=== PATIENT | female | born 1970 | race African-American/Black ===

== ENCOUNTER 2020-09-03 18:28 | Inpatient (IN) ==
[2020-09-03] MEDS ORDERED: SODIUM CHLORIDE 0.9% 1,000 ML IV STA ×2 (19:48→22:06)
[2020-09-03 20:14] LABS: Basophils % 0.3 % (0.0-0.8); Eosinophils # 0.1 10*3/uL (0.0-0.87); Eosinophils % 1.1 % (0.00-10.9); Hematocrit 36.5 VOL% (35.7-47.0); Hemoglobin 11.3 GM/DL (12.0-16.0); Immature Granulocytes % 0.9 %; Immature Granulocytes Absolute 0.11 #; Lymphocytes # 3.5 10*3/uL (1.4-4.0); Lymphocytes % 29.2 % (21.3-54.2); Mean Corpuscular Volume 92.2 FL (87-102); Neutrophils % 63.5 % (38.7-73.9); Platelet Count 198 T/CUMM (130-400); Red Blood Count 3.96 MC/CUMM (3.8-5.5); Red Cell Distribution Width 12.4 % (9.3-17.3)
[2020-09-03 20:41] LABS: Alanine Aminotransferase 20 U/L (13-56); Albumin 3.1 G/DL (3.4-5.0); Alkaline Phosphatase 205 U/L (45-117); Aspartate Amino Transferase 19 U/L (0-37); Bilirubin,Total < 0.39 MG/DL (0.2-1.0); Blood Urea Nitrogen 75 MG/DL (7-18); Calcium 9.5 MG/DL (8.5-10.1); Carbon Dioxide 20 MMOL/L (21-32); Estimated Glom Filtration Rate 30 ML/MIN; Glucose 351 MG/DL (74-106); Osmolality,Calculated 301.4 MOS/KG (273-304); Sodium 133 MMOL/L (136-145); Total Protein 8.8 G/DL (6.4-8.3)
[2020-09-03 22:16] LABS: Bacteria,Urine Few /HPF (Few); Bilirubin,Urine Negative (Negative); Blood, Urine Negative (Negative); Glucose,Urine (UA) >=500 mg/dL (Negative); Ketones,Urine Negative (Negative); Mucus,Urine Occasional /LPF (Occasional); Nitrite,Urine Negative (Negative); Protein,Urine 100 MG/DL; RBC,Urine 1 /HPF (0-4); Squamous Epithelial Cell,Urine Occasional /HPF (0-10); Urine Appearance CLEAR (Clear); Urine Color Straw (Yellow); Urine Specific Gravity 1.008 (1.001-1.035); Urine Urobilinogen < 2.0 EU/DL (0.2-1.0); WBC,Urine 2 /HPF (0-6)
[2020-09-04] MEDS ORDERED: ACETAMINOPHEN 325 MG TABLET PO PRN (00:44)
[2020-09-04] MEDS ORDERED: hydrALAZINE 20 MG/1 ML VIAL IV PRN (00:44)
[2020-09-04] MEDS ORDERED: ONDANSETRON 4 MG/2 ML VIAL IV PRN (00:44)
[2020-09-04] MEDS ORDERED: LACTULOSE 20 GM/30 ML UDCUP PO PRN (00:44)
[2020-09-04] MEDS ORDERED: DEXTROSE 50% 25 GM/50 ML VIAL IV PRN (00:44)
[2020-09-04] MEDS ORDERED: GLUCAGON 1 MG VIAL IM PRN (00:44)
[2020-09-04] MEDS: ENOXAPARIN 30 MG/0.3 ML SYRINGE SUBCUT SCH (02:21)
[2020-09-04] MEDS: INSULIN GLARGINE 100 UNIT/ML SUBCUT SCH ×2 (02:21→21:20)
[2020-09-04] MEDS: SODIUM CHLORIDE 0.9% 1,000 ML IV SCH ×3 (02:22→23:51)
[2020-09-04 05:45] LABS: Basophils % 0.3 % (0.0-0.8); Eosinophils # 0.1 10*3/uL (0.0-0.87); Eosinophils % 1.2 % (0.00-10.9); Hematocrit 28.9 VOL% (35.7-47.0); Lymphocytes # 3.6 10*3/uL (1.4-4.0); Lymphocytes % 34.5 % (21.3-54.2); Mean Corpuscular HGB Conc 31.1 GM/DL (32-36); Mean Corpuscular Volume 92.3 FL (87-102); Mean Platelet Volume 11.4 FL (9.6-12.0); Monocytes % 6.8 % (1.7-12.7); Neutrophils % 56.2 % (38.7-73.9); Platelet Count 218 T/CUMM (130-400); Red Blood Count 3.13 MC/CUMM (3.8-5.5); Red Cell Distribution Width 12.6 % (9.3-17.3); White Blood Count 10.3 T/CUMM (4-12)
[2020-09-04 06:08] LABS: Calcium 8.4 MG/DL (8.5-10.1); Potassium 4.6 MMOL/L (3.5-5.1)
[2020-09-04] MEDS: INSULIN LISPRO 100 UNIT/ML SUBCUT SCH ×4 (09:48→21:20)
[2020-09-04] MEDS: SIMVASTATIN 20 MG TABLET PO SCH (09:55)
[2020-09-04] MEDS: GABAPENTIN 300 MG CAPSULE PO SCH ×3 (09:55→21:20)
[2020-09-04] MEDS: amLODIPine 10 MG TABLET PO SCH (09:55)
[2020-09-04] MEDS: oxyCODONE/ACETAMINOPHEN 5-325 MG TABLET PO PRN (23:50)
[2020-09-05 06:50] LABS: Basophils % 0.3 % (0.0-0.8); Eosinophils # 0.2 10*3/uL (0.0-0.87); Eosinophils % 1.7 % (0.00-10.9); Hematocrit 28.8 VOL% (35.7-47.0); Hemoglobin 8.8 GM/DL (12.0-16.0); Immature Granulocytes % 0.8 %; Immature Granulocytes Absolute 0.08 #; Lymphocytes # 4.4 10*3/uL (1.4-4.0); Mean Corpuscular HGB Conc 30.6 GM/DL (32-36); Mean Corpuscular Volume 93.8 FL (87-102); Mean Platelet Volume 11.3 FL (9.6-12.0); Monocytes % 6.5 % (1.7-12.7); Neutrophils % 48.7 % (38.7-73.9); Platelet Count 241 T/CUMM (130-400); Red Blood Count 3.07 MC/CUMM (3.8-5.5); Red Cell Distribution Width 12.6 % (9.3-17.3); White Blood Count 10.6 T/CUMM (4-12)
[2020-09-05 07:31] LABS: Calcium 8.2 MG/DL (8.5-10.1); Potassium 4.6 MMOL/L (3.5-5.1)
[2020-09-05] MEDS: GABAPENTIN 300 MG CAPSULE PO SCH ×3 (08:11→21:15)
[2020-09-05] MEDS: amLODIPine 10 MG TABLET PO SCH (08:11)
[2020-09-05] MEDS: INSULIN LISPRO 100 UNIT/ML SUBCUT SCH ×4 (08:11→21:18)
[2020-09-05] MEDS: ENOXAPARIN 30 MG/0.3 ML SYRINGE SUBCUT SCH (08:11)
[2020-09-05] MEDS: SIMVASTATIN 20 MG TABLET PO SCH (08:11)
[2020-09-05] MEDS: SODIUM CHLORIDE 0.9% 1,000 ML IV SCH ×2 (08:20→12:51)
[2020-09-05] MEDS ORDERED: INSULIN GLARGINE 100 UNIT/ML SUBCUT SCH (17:55)
[2020-09-05] MEDS: oxyCODONE/ACETAMINOPHEN 5-325 MG TABLET PO PRN (21:16)
[2020-09-05] MEDS: hydrALAZINE 10 MG TABLET PO SCH (21:16)
[2020-09-06] MEDS: SODIUM CHLORIDE 0.9% 1,000 ML IV SCH (02:29)
[2020-09-06 03:35] LABS: Calcium 8.4 MG/DL (8.5-10.1); Osmolality,Calculated 291.8 MOS/KG (273-304); Potassium 4.7 MMOL/L (3.5-5.1)
[2020-09-06 07:58] VITALS: BP 135/55
[2020-09-06] MEDS: GABAPENTIN 300 MG CAPSULE PO SCH (09:11)
[2020-09-06] MEDS: hydrALAZINE 10 MG TABLET PO SCH (09:11)
[2020-09-06] MEDS: amLODIPine 10 MG TABLET PO SCH (09:12)
[2020-09-06] MEDS: ENOXAPARIN 30 MG/0.3 ML SYRINGE SUBCUT SCH (09:12)
[2020-09-06] MEDS: INSULIN LISPRO 100 UNIT/ML SUBCUT SCH (09:12)
[2020-09-06] MEDS ORDERED: SIMVASTATIN 20 MG TABLET PO SCH (21:00)
== END 2020-09-06 12:31 | disposition home or self-care (01) | DRG 422 ==
LOC: N.ED 18:28 → N.EDINP 23:32 → SUATTDRO 23:32 → N.EDINP 09-04 00:56 → N.4E 09-04 02:38
PROVIDERS: ADMIT Internal Medicine; ATTEND Internal Medicine

== ENCOUNTER 2022-06-28 10:09 | Inpatient (IN) ==
[2022-06-28] MEDS ORDERED: ACETAMINOPHEN 325 MG TABLET PO PRN (14:43)
[2022-06-28] MEDS ORDERED: ONDANSETRON 4 MG/2 ML VIAL IV PRN (14:43)
[2022-06-28 15:14] LABS: Basophils % 0.3 % (0.0-0.8); Eosinophils # 0.2 10*3/uL (0.0-0.87); Eosinophils % 1.8 % (0.00-10.9); Hematocrit 25.9 VOL% (35.7-47.0); Hemoglobin 7.6 GM/DL (12.0-16.0); Immature Granulocytes % 1.6 %; Immature Granulocytes Absolute 0.19 #; Lymphocytes # 2.4 10*3/uL (1.4-4.0); Lymphocytes % 21.1 % (21.3-54.2); Mean Corpuscular HGB Conc 29.3 GM/DL (32-36); Mean Corpuscular Volume 94.2 FL (87-102); Mean Platelet Volume 9.6 FL (9.6-12.0); Monocytes # 0.9 10*3/uL (0.11-0.8); Monocytes % 7.4 % (1.7-12.7); NRBC # 0.02 10*3/uL; Neutrophils % 67.8 % (38.7-73.9); Platelet Count 324 T/CUMM (130-400); Red Blood Count 2.75 MC/CUMM (3.8-5.5); Red Cell Distribution Width 14.2 % (9.3-17.3); White Blood Count 11.6 T/CUMM (4-12)
[2022-06-28 15:32] LABS: Alanine Aminotransferase 44 U/L (13-56); Albumin 2.2 G/DL (3.4-5.0); Alkaline Phosphatase 174 U/L (45-117); Aspartate Amino Transferase 24 U/L (0-37); Bilirubin,Total < 0.39 MG/DL (0.20-1.00); Blood Urea Nitrogen 103 MG/DL (7-18); Calcium 8.8 MG/DL (8.5-10.1); Carbon Dioxide 22 MMOL/L (21-32); Chloride 106 MMOL/L (98-107); Glucose 174 MG/DL (74-106); Potassium 5.7 MMOL/L (3.5-5.1); Sodium 136 MMOL/L (136-145); Total Protein 7.5 G/DL (6.4-8.2)
[2022-06-28] MEDS ORDERED: GLUCAGON 1 MG VIAL IM PRN (15:42)
[2022-06-28] MEDS ORDERED: DEXTROSE 10% 250 ML BAG IV PRN (15:42)
[2022-06-28 16:14] LABS: % Iron Saturation 13.5 % (18-50); Ferritin 355.4 ng/mL (8-252)
[2022-06-28] MEDS: INSULIN LISPRO 100 UNIT/ML SUBCUT SCH ×2 (16:35→21:30)
[2022-06-28] MEDS: hydrALAZINE 20 MG/1 ML VIAL IV PRN (21:29)
[2022-06-28] MEDS: FLUTICASONE 50 MCG NASAL SPRAY 16 GM BOTTLE BOTH NARES SCH (21:29)
[2022-06-28] MEDS: HEPARIN 5,000 UNIT/1 ML VIAL SUBCUT SCH (21:30)
[2022-06-28] MEDS: SODIUM ZIRCONIUM CYCLOSILICATE 10 GM PACK PO SCH (21:30)
[2022-06-29 05:11] LABS: Basophils % 0.3 % (0.0-0.8); Eosinophils # 0.3 10*3/uL (0.0-0.87); Eosinophils % 2.3 % (0.00-10.9); Hemoglobin 6.9 GM/DL (12.0-16.0); Immature Granulocytes % 1.6 %; Immature Granulocytes Absolute 0.17 #; Lymphocytes # 2.2 10*3/uL (1.4-4.0); Lymphocytes % 20.5 % (21.3-54.2); Mean Corpuscular HGB Conc 28.8 GM/DL (32-36); Mean Corpuscular Volume 96.8 FL (87-102); Mean Platelet Volume 9.9 FL (9.6-12.0); Monocytes # 0.8 10*3/uL (0.11-0.8); Monocytes % 7.1 % (1.7-12.7); NRBC # 0.02 10*3/uL; Neutrophils % 68.2 % (38.7-73.9); Platelet Count 343 T/CUMM (130-400); Red Blood Count 2.48 MC/CUMM (3.8-5.5); Red Cell Distribution Width 14.2 % (9.3-17.3); White Blood Count 10.9 T/CUMM (4-12)
[2022-06-29 05:22] LABS: Calcium 8.8 MG/DL (8.5-10.1); Osmolality,Calculated 303.2 MOS/KG (273-304); Potassium 5.9 MMOL/L (3.5-5.1)
[2022-06-29 05:39] LABS: Platelet Estimate Adequate
[2022-06-29 06:03] LABS: Hepatitis B Core IgM Quant 0.06 Index; Hepatitis B Surface Ag Quant < 0.10 Index; Hepatitis B Surface Ag Result Non-Reactive (NonReactive); Hepatitis C Virus Ab Quant < 0.02 Index; Hepatitis C Virus Ab Result Non-Reactive (NonReactive)
[2022-06-29] MEDS: INSULIN LISPRO 100 UNIT/ML SUBCUT SCH ×4 (08:45→21:49)
[2022-06-29] MEDS ORDERED: INSULIN REGULAR 10 UNIT, CALCIUM GLUCONATE 1,000 MG in DEXTROSE 10% 250 ML IV ONE (10:03)
[2022-06-29] MEDS: FERROUS SULFATE 325 MG TABLET PO SCH ×2 (10:31→21:46)
[2022-06-29] MEDS: PANTOPRAZOLE 40 MG TABLET PO SCH (10:31)
[2022-06-29] MEDS: HEPARIN 5,000 UNIT/1 ML VIAL SUBCUT SCH (10:31)
[2022-06-29] MEDS: hydrALAZINE 10 MG TABLET PO SCH (10:31)
[2022-06-29] MEDS: SODIUM ZIRCONIUM CYCLOSILICATE 10 GM PACK PO SCH ×3 (10:31→21:47)
[2022-06-29] MEDS: GABAPENTIN 300 MG CAPSULE PO SCH ×3 (10:31→21:46)
[2022-06-29] MEDS: FLUTICASONE 50 MCG NASAL SPRAY 16 GM BOTTLE BOTH NARES SCH ×2 (10:32→21:47)
[2022-06-29] MEDS ORDERED: SODIUM CHLORIDE 0.9% 1,000 ML IV PRN (10:46)
[2022-06-29] MEDS ORDERED: DEXTROSE 50% 25 GM/50 ML VIAL IV PRN (11:13)
[2022-06-29] MEDS ORDERED: FUROSEMIDE 100 MG/10 ML VIAL IV SCH (16:00)
[2022-06-29] MEDS: amLODIPine 10 MG TABLET PO SCH (21:46)
[2022-06-29] MEDS: INSULIN GLARGINE 100 UNIT/ML SUBCUT SCH (21:49)
[2022-06-30 04:52] LABS: Basophils % 0.3 % (0.0-0.8); Eosinophils # 0.2 10*3/uL (0.0-0.87); Eosinophils % 1.9 % (0.00-10.9); Hematocrit 23.4 VOL% (35.7-47.0); Hemoglobin 6.8 GM/DL (12.0-16.0); Immature Granulocytes Absolute 0.23 #; Lymphocytes # 2.4 10*3/uL (1.4-4.0); Lymphocytes % 20.8 % (21.3-54.2); Mean Corpuscular HGB Conc 29.1 GM/DL (32-36); Mean Corpuscular Volume 95.5 FL (87-102); Mean Platelet Volume 9.7 FL (9.6-12.0); Monocytes # 0.8 10*3/uL (0.11-0.8); Monocytes % 7.3 % (1.7-12.7); Neutrophils % 67.7 % (38.7-73.9); Platelet Count 327 T/CUMM (130-400); Red Blood Count 2.45 MC/CUMM (3.8-5.5); Red Cell Distribution Width 13.8 % (9.3-17.3); White Blood Count 11.4 T/CUMM (4-12)
[2022-06-30 05:02] LABS: Calcium 8.7 MG/DL (8.5-10.1); Osmolality,Calculated 310.7 MOS/KG (273-304); Potassium 5.6 MMOL/L (3.5-5.1)
[2022-06-30] MEDS ORDERED: HEPARIN 5,000 UNIT/1 ML VIAL ONE (06:14)
[2022-06-30] MEDS ORDERED: BUPIVACAINE MPF 0.25% 10 ML VIAL ONE (06:14)
[2022-06-30] MEDS ORDERED: LIDOCAINE 1%/EPI INJ 20 ML VIAL ONE (06:14)
[2022-06-30] MEDS ORDERED: MIDAZOLAM 2 MG/2 ML VIAL ONE (06:45)
[2022-06-30] MEDS ORDERED: fentaNYL 100 MCG/2 ML VIAL ONE (06:45)
[2022-06-30] MEDS ORDERED: ONDANSETRON 4 MG/2 ML VIAL ONE (08:05)
[2022-06-30] MEDS ORDERED: TISSUE ADHESIVE 1 EACH APPLICATOR TOP ONE (08:13)
[2022-06-30] MEDS ORDERED: SODIUM CHLORIDE 0.9% 1,000 ML IV PRN (08:37)
[2022-06-30] MEDS: INSULIN LISPRO 100 UNIT/ML SUBCUT SCH ×4 (08:58→21:17)
[2022-06-30] MEDS: SODIUM ZIRCONIUM CYCLOSILICATE 10 GM PACK PO SCH ×2 (09:00→17:12)
[2022-06-30] MEDS: FLUTICASONE 50 MCG NASAL SPRAY 16 GM BOTTLE BOTH NARES SCH ×2 (09:00→21:17)
[2022-06-30] MEDS: FERROUS SULFATE 325 MG TABLET PO SCH ×2 (09:00→21:17)
[2022-06-30] MEDS: hydrALAZINE 10 MG TABLET PO SCH (09:00)
[2022-06-30] MEDS: GABAPENTIN 300 MG CAPSULE PO SCH ×3 (09:01→21:17)
[2022-06-30] MEDS: PANTOPRAZOLE 40 MG TABLET PO SCH (09:01)
[2022-06-30] MEDS ORDERED: HEPARIN 10,000 UNIT/10 ML VIAL IV PRN (10:49)
[2022-06-30] MEDS: INSULIN GLARGINE 100 UNIT/ML SUBCUT SCH (21:17)
[2022-06-30] MEDS: amLODIPine 10 MG TABLET PO SCH (21:17)
[2022-07-01 05:05] LABS: Basophils % 0.3 % (0.0-0.8); Eosinophils # 0.2 10*3/uL (0.0-0.87); Eosinophils % 1.8 % (0.00-10.9); Hematocrit 27.2 VOL% (35.7-47.0); Hemoglobin 8.1 GM/DL (12.0-16.0); Immature Granulocytes Absolute 0.22 #; Lymphocytes # 1.7 10*3/uL (1.4-4.0); Lymphocytes % 15.5 % (21.3-54.2); Mean Corpuscular HGB Conc 29.8 GM/DL (32-36); Mean Corpuscular Volume 94.4 FL (87-102); Mean Platelet Volume 9.6 FL (9.6-12.0); Monocytes # 0.8 10*3/uL (0.11-0.8); Monocytes % 6.7 % (1.7-12.7); NRBC # 0.02 10*3/uL; Neutrophils % 73.7 % (38.7-73.9); Platelet Count 298 T/CUMM (130-400); Red Blood Count 2.88 MC/CUMM (3.8-5.5); White Blood Count 11.1 T/CUMM (4-12)
[2022-07-01 05:20] LABS: Calcium 9.1 MG/DL (8.5-10.1); Osmolality,Calculated 304.4 MOS/KG (273-304); Potassium 5.3 MMOL/L (3.5-5.1)
[2022-07-01] MEDS: INSULIN LISPRO 100 UNIT/ML SUBCUT SCH ×4 (07:38→21:27)
[2022-07-01] MEDS: LACTULOSE 20 GM/30 ML UDCUP PO SCH ×3 (09:45→21:27)
[2022-07-01] MEDS: hydrALAZINE 10 MG TABLET PO SCH (09:45)
[2022-07-01] MEDS: SODIUM ZIRCONIUM CYCLOSILICATE 10 GM PACK PO SCH (09:45)
[2022-07-01] MEDS: GABAPENTIN 300 MG CAPSULE PO SCH ×3 (09:45→21:26)
[2022-07-01] MEDS: POLYETHYLENE GLYCOL POWDER 17 GM PACK PO SCH (09:45)
[2022-07-01] MEDS: PANTOPRAZOLE 40 MG TABLET PO SCH (09:45)
[2022-07-01] MEDS: FERROUS SULFATE 325 MG TABLET PO SCH ×2 (09:45→21:26)
[2022-07-01] MEDS: FLUTICASONE 50 MCG NASAL SPRAY 16 GM BOTTLE BOTH NARES SCH ×2 (09:46→21:26)
[2022-07-01] MEDS: INSULIN GLARGINE 100 UNIT/ML SUBCUT SCH (21:26)
[2022-07-01] MEDS: amLODIPine 10 MG TABLET PO SCH (21:26)
[2022-07-02 05:27] LABS: Basophils % 0.3 % (0.0-0.8); Eosinophils # 0.2 10*3/uL (0.0-0.87); Hematocrit 26.9 VOL% (35.7-47.0); Immature Granulocytes % 1.8 %; Immature Granulocytes Absolute 0.21 #; Lymphocytes # 1.8 10*3/uL (1.4-4.0); Mean Corpuscular HGB Conc 29.7 GM/DL (32-36); Mean Corpuscular Volume 93.1 FL (87-102); Mean Platelet Volume 9.9 FL (9.6-12.0); Monocytes # 0.8 10*3/uL (0.11-0.8); Monocytes % 6.7 % (1.7-12.7); NRBC # 0.03 10*3/uL; Neutrophils % 73.2 % (38.7-73.9); Platelet Count 305 T/CUMM (130-400); Red Blood Count 2.89 MC/CUMM (3.8-5.5); Red Cell Distribution Width 13.8 % (9.3-17.3); White Blood Count 11.4 T/CUMM (4-12)
[2022-07-02 05:40] LABS: Calcium 9.1 MG/DL (8.5-10.1); Potassium 5.3 MMOL/L (3.5-5.1)
[2022-07-02] MEDS: PANTOPRAZOLE 40 MG TABLET PO SCH (08:03)
[2022-07-02] MEDS: GABAPENTIN 300 MG CAPSULE PO SCH ×3 (08:03→21:17)
[2022-07-02] MEDS: FLUTICASONE 50 MCG NASAL SPRAY 16 GM BOTTLE BOTH NARES SCH ×2 (08:04→21:32)
[2022-07-02] MEDS: FERROUS SULFATE 325 MG TABLET PO SCH ×2 (08:04→21:16)
[2022-07-02] MEDS: SODIUM ZIRCONIUM CYCLOSILICATE 10 GM PACK PO SCH (08:04)
[2022-07-02] MEDS: INSULIN LISPRO 100 UNIT/ML SUBCUT SCH ×4 (08:04→21:17)
[2022-07-02] MEDS: POLYETHYLENE GLYCOL POWDER 17 GM PACK PO SCH (08:05)
[2022-07-02] MEDS: hydrALAZINE 10 MG TABLET PO SCH ×2 (08:09→16:58)
[2022-07-02] MEDS: LACTULOSE 20 GM/30 ML UDCUP PO SCH ×2 (08:09→21:16)
[2022-07-02 15:31] LABS: Calcium 9.3 MG/DL (8.5-10.1); Osmolality,Calculated 293.7 MOS/KG (273-304); Potassium 4.1 MMOL/L (3.5-5.1)
[2022-07-02] MEDS: amLODIPine 10 MG TABLET PO SCH (21:16)
[2022-07-02] MEDS: INSULIN GLARGINE 100 UNIT/ML SUBCUT SCH (21:17)
[2022-07-03] MEDS: hydrALAZINE 20 MG/1 ML VIAL IV PRN (00:21)
[2022-07-03 05:18] LABS: Basophils % 0.4 % (0.0-0.8); Eosinophils # 0.3 10*3/uL (0.0-0.87); Eosinophils % 2.6 % (0.00-10.9); Hematocrit 27.4 VOL% (35.7-47.0); Hemoglobin 8.2 GM/DL (12.0-16.0); Immature Granulocytes % 1.8 %; Lymphocytes % 17.4 % (21.3-54.2); Mean Corpuscular HGB Conc 29.9 GM/DL (32-36); Mean Corpuscular Volume 93.5 FL (87-102); Mean Platelet Volume 9.9 FL (9.6-12.0); Monocytes # 0.7 10*3/uL (0.11-0.8); NRBC # 0.02 10*3/uL; Neutrophils % 71.8 % (38.7-73.9); Platelet Count 288 T/CUMM (130-400); Red Blood Count 2.93 MC/CUMM (3.8-5.5); Red Cell Distribution Width 13.4 % (9.3-17.3); White Blood Count 11.3 T/CUMM (4-12)
[2022-07-03 05:39] LABS: Osmolality,Calculated 297.4 MOS/KG (273-304); Potassium 4.6 MMOL/L (3.5-5.1)
[2022-07-03] MEDS: INSULIN LISPRO 100 UNIT/ML SUBCUT SCH ×4 (09:07→20:30)
[2022-07-03] MEDS: GABAPENTIN 300 MG CAPSULE PO SCH ×3 (09:08→20:29)
[2022-07-03] MEDS: FERROUS SULFATE 325 MG TABLET PO SCH ×2 (09:08→20:29)
[2022-07-03] MEDS: PANTOPRAZOLE 40 MG TABLET PO SCH (09:08)
[2022-07-03] MEDS: hydrALAZINE 25 MG TABLET PO SCH ×2 (13:32→20:29)
[2022-07-03] MEDS: FLUTICASONE 50 MCG NASAL SPRAY 16 GM BOTTLE BOTH NARES SCH ×2 (13:33→21:31)
[2022-07-03] MEDS: POLYETHYLENE GLYCOL POWDER 17 GM PACK PO SCH (13:33)
[2022-07-03] MEDS: LACTULOSE 20 GM/30 ML UDCUP PO SCH ×2 (13:33→20:30)
[2022-07-03] MEDS: SODIUM ZIRCONIUM CYCLOSILICATE 10 GM PACK PO SCH (13:36)
[2022-07-03] MEDS: amLODIPine 10 MG TABLET PO SCH (20:29)
[2022-07-03] MEDS: INSULIN GLARGINE 100 UNIT/ML SUBCUT SCH (20:29)
[2022-07-04 05:13] LABS: Basophils % 0.3 % (0.0-0.8); Eosinophils # 0.3 10*3/uL (0.0-0.87); Eosinophils % 2.6 % (0.00-10.9); Hematocrit 27.8 VOL% (35.7-47.0); Hemoglobin 8.3 GM/DL (12.0-16.0); Immature Granulocytes % 1.3 %; Immature Granulocytes Absolute 0.15 #; Lymphocytes # 2.3 10*3/uL (1.4-4.0); Lymphocytes % 19.9 % (21.3-54.2); Mean Corpuscular HGB Conc 29.9 GM/DL (32-36); Mean Corpuscular Volume 94.6 FL (87-102); Mean Platelet Volume 10.1 FL (9.6-12.0); Monocytes # 0.7 10*3/uL (0.11-0.8); Monocytes % 5.6 % (1.7-12.7); Neutrophils % 70.3 % (38.7-73.9); Platelet Count 316 T/CUMM (130-400); Red Blood Count 2.94 MC/CUMM (3.8-5.5); Red Cell Distribution Width 13.4 % (9.3-17.3); White Blood Count 11.7 T/CUMM (4-12)
[2022-07-04 05:33] LABS: Calcium 9.1 MG/DL (8.5-10.1); Osmolality,Calculated 291.4 MOS/KG (273-304); Potassium 4.6 MMOL/L (3.5-5.1)
[2022-07-04] MEDS: POLYETHYLENE GLYCOL POWDER 17 GM PACK PO SCH (08:53)
[2022-07-04] MEDS: LACTULOSE 20 GM/30 ML UDCUP PO SCH ×2 (08:53→21:45)
[2022-07-04] MEDS: SODIUM ZIRCONIUM CYCLOSILICATE 10 GM PACK PO SCH (08:53)
[2022-07-04] MEDS: INSULIN LISPRO 100 UNIT/ML SUBCUT SCH ×5 (08:53→21:54)
[2022-07-04] MEDS: FERROUS SULFATE 325 MG TABLET PO SCH ×2 (08:54→21:45)
[2022-07-04] MEDS: GABAPENTIN 300 MG CAPSULE PO SCH ×3 (08:54→21:46)
[2022-07-04] MEDS: FLUTICASONE 50 MCG NASAL SPRAY 16 GM BOTTLE BOTH NARES SCH ×2 (08:54→21:54)
[2022-07-04] MEDS: PANTOPRAZOLE 40 MG TABLET PO SCH (08:54)
[2022-07-04] MEDS: hydrALAZINE 25 MG TABLET PO SCH ×2 (08:54→21:45)
[2022-07-04] MEDS: amLODIPine 10 MG TABLET PO SCH (21:46)
[2022-07-04] MEDS: INSULIN GLARGINE 100 UNIT/ML SUBCUT SCH (21:51)
[2022-07-05 06:15] LABS: Basophils % 0.3 % (0.0-0.8); Eosinophils # 0.3 10*3/uL (0.0-0.87); Eosinophils % 2.7 % (0.00-10.9); Hematocrit 28.5 VOL% (35.7-47.0); Hemoglobin 8.2 GM/DL (12.0-16.0); Immature Granulocytes % 1.3 %; Immature Granulocytes Absolute 0.15 #; Lymphocytes # 2.4 10*3/uL (1.4-4.0); Lymphocytes % 20.3 % (21.3-54.2); Mean Corpuscular HGB Conc 28.8 GM/DL (32-36); Mean Platelet Volume 10.3 FL (9.6-12.0); Monocytes # 0.7 10*3/uL (0.11-0.8); Monocytes % 5.7 % (1.7-12.7); Neutrophils % 69.7 % (38.7-73.9); Platelet Count 315 T/CUMM (130-400); Red Cell Distribution Width 13.2 % (9.3-17.3)
[2022-07-05 06:27] LABS: Calcium 9.1 MG/DL (8.5-10.1); Osmolality,Calculated 286.1 MOS/KG (273-304); Potassium 4.3 MMOL/L (3.5-5.1)
[2022-07-05] MEDS: LACTULOSE 20 GM/30 ML UDCUP PO SCH ×2 (09:45→22:05)
[2022-07-05] MEDS: SODIUM ZIRCONIUM CYCLOSILICATE 10 GM PACK PO SCH (09:45)
[2022-07-05] MEDS: INSULIN LISPRO 100 UNIT/ML SUBCUT SCH ×4 (09:45→22:04)
[2022-07-05] MEDS: POLYETHYLENE GLYCOL POWDER 17 GM PACK PO SCH (09:45)
[2022-07-05] MEDS: FLUTICASONE 50 MCG NASAL SPRAY 16 GM BOTTLE BOTH NARES SCH ×2 (09:46→22:04)
[2022-07-05] MEDS: PANTOPRAZOLE 40 MG TABLET PO SCH (09:47)
[2022-07-05] MEDS: hydrALAZINE 25 MG TABLET PO SCH ×2 (09:47→22:03)
[2022-07-05] MEDS: FERROUS SULFATE 325 MG TABLET PO SCH ×2 (09:47→22:03)
[2022-07-05] MEDS: GABAPENTIN 300 MG CAPSULE PO SCH ×3 (09:47→22:03)
[2022-07-05] MEDS: amLODIPine 10 MG TABLET PO SCH (22:03)
[2022-07-05] MEDS: INSULIN GLARGINE 100 UNIT/ML SUBCUT SCH (22:04)
[2022-07-06 05:23] LABS: Basophils % 0.3 % (0.0-0.8); Eosinophils # 0.4 10*3/uL (0.0-0.87); Eosinophils % 3.4 % (0.00-10.9); Hematocrit 27.7 VOL% (35.7-47.0); Hemoglobin 8.1 GM/DL (12.0-16.0); Immature Granulocytes % 1.1 %; Immature Granulocytes Absolute 0.12 #; Lymphocytes # 1.9 10*3/uL (1.4-4.0); Lymphocytes % 17.8 % (21.3-54.2); Mean Corpuscular HGB Conc 29.2 GM/DL (32-36); Mean Corpuscular Volume 95.8 FL (87-102); Mean Platelet Volume 10.2 FL (9.6-12.0); Monocytes # 0.8 10*3/uL (0.11-0.8); Neutrophils % 70.4 % (38.7-73.9); Platelet Count 296 T/CUMM (130-400); Red Blood Count 2.89 MC/CUMM (3.8-5.5); Red Cell Distribution Width 13.3 % (9.3-17.3); White Blood Count 10.9 T/CUMM (4-12)
[2022-07-06 05:35] LABS: Calcium 8.8 MG/DL (8.5-10.1); Osmolality,Calculated 285.8 MOS/KG (273-304); Potassium 4.5 MMOL/L (3.5-5.1)
[2022-07-06] MEDS: FERROUS SULFATE 325 MG TABLET PO SCH ×2 (10:19→21:12)
[2022-07-06] MEDS: LACTULOSE 20 GM/30 ML UDCUP PO SCH ×3 (10:19→21:21)
[2022-07-06] MEDS: FLUTICASONE 50 MCG NASAL SPRAY 16 GM BOTTLE BOTH NARES SCH ×2 (10:20→21:15)
[2022-07-06] MEDS: SODIUM ZIRCONIUM CYCLOSILICATE 10 GM PACK PO SCH (10:23)
[2022-07-06] MEDS: POLYETHYLENE GLYCOL POWDER 17 GM PACK PO SCH (10:25)
[2022-07-06] MEDS: GABAPENTIN 300 MG CAPSULE PO SCH ×3 (10:25→21:12)
[2022-07-06] MEDS: PANTOPRAZOLE 40 MG TABLET PO SCH (10:25)
[2022-07-06] MEDS: INSULIN LISPRO 100 UNIT/ML SUBCUT SCH ×4 (12:31→21:13)
[2022-07-06] MEDS: amLODIPine 10 MG TABLET PO SCH (21:12)
[2022-07-06] MEDS: INSULIN GLARGINE 100 UNIT/ML SUBCUT SCH (21:13)
[2022-07-07 05:47] LABS: Basophils # 0.1 10*3/uL (0.0-0.2); Basophils % 0.4 % (0.0-0.8); Eosinophils # 0.3 10*3/uL (0.0-0.87); Eosinophils % 2.9 % (0.00-10.9); Hematocrit 27.7 VOL% (35.7-47.0); Hemoglobin 8.2 GM/DL (12.0-16.0); Immature Granulocytes % 0.9 %; Immature Granulocytes Absolute 0.11 #; Lymphocytes # 2.4 10*3/uL (1.4-4.0); Lymphocytes % 20.4 % (21.3-54.2); Mean Corpuscular HGB Conc 29.6 GM/DL (32-36); Mean Corpuscular Volume 95.8 FL (87-102); Mean Platelet Volume 10.2 FL (9.6-12.0); Monocytes # 0.8 10*3/uL (0.11-0.8); Monocytes % 6.7 % (1.7-12.7); Neutrophils % 68.7 % (38.7-73.9); Platelet Count 313 T/CUMM (130-400); Red Blood Count 2.89 MC/CUMM (3.8-5.5); Red Cell Distribution Width 13.3 % (9.3-17.3); White Blood Count 11.6 T/CUMM (4-12)
[2022-07-07 05:57] LABS: Calcium 8.9 MG/DL (8.5-10.1); Osmolality,Calculated 285.2 MOS/KG (273-304); Potassium 4.6 MMOL/L (3.5-5.1)
[2022-07-07] MEDS ORDERED: GLUCAGON 1 MG VIAL IM PRN (08:16)
[2022-07-07] MEDS ORDERED: DEXTROSE 50% 25 GM/50 ML VIAL IV PRN (08:16)
[2022-07-07] MEDS: FLUTICASONE 50 MCG NASAL SPRAY 16 GM BOTTLE BOTH NARES SCH ×2 (09:23→20:35)
[2022-07-07] MEDS: FERROUS SULFATE 325 MG TABLET PO SCH ×2 (09:23→20:34)
[2022-07-07] MEDS: SODIUM ZIRCONIUM CYCLOSILICATE 10 GM PACK PO SCH (09:23)
[2022-07-07] MEDS: LACTULOSE 20 GM/30 ML UDCUP PO SCH (09:23)
[2022-07-07] MEDS: PANTOPRAZOLE 40 MG TABLET PO SCH (09:24)
[2022-07-07] MEDS: GABAPENTIN 300 MG CAPSULE PO SCH ×3 (09:24→20:35)
[2022-07-07] MEDS: POLYETHYLENE GLYCOL POWDER 17 GM PACK PO SCH (09:24)
[2022-07-07] MEDS: INSULIN LISPRO 100 UNIT/ML SUBCUT SCH ×4 (15:32→20:34)
[2022-07-07] MEDS: INSULIN GLARGINE 100 UNIT/ML SUBCUT SCH (20:34)
[2022-07-07] MEDS: amLODIPine 10 MG TABLET PO SCH (20:34)
[2022-07-08 05:34] LABS: Basophils % 0.4 % (0.0-0.8); Eosinophils # 0.3 10*3/uL (0.0-0.87); Eosinophils % 3.2 % (0.00-10.9); Hematocrit 27.5 VOL% (35.7-47.0); Hemoglobin 8.1 GM/DL (12.0-16.0); Immature Granulocytes % 0.8 %; Immature Granulocytes Absolute 0.07 #; Lymphocytes # 1.9 10*3/uL (1.4-4.0); Lymphocytes % 20.8 % (21.3-54.2); Mean Corpuscular HGB Conc 29.5 GM/DL (32-36); Mean Corpuscular Volume 95.2 FL (87-102); Mean Platelet Volume 10.5 FL (9.6-12.0); Monocytes # 0.8 10*3/uL (0.11-0.8); Monocytes % 8.1 % (1.7-12.7); Neutrophils % 66.7 % (38.7-73.9); Platelet Count 281 T/CUMM (130-400); Red Blood Count 2.89 MC/CUMM (3.8-5.5); Red Cell Distribution Width 13.4 % (9.3-17.3); White Blood Count 9.3 T/CUMM (4-12)
[2022-07-08 05:41] LABS: Calcium 8.9 MG/DL (8.5-10.1); Potassium 4.4 MMOL/L (3.5-5.1)
[2022-07-08] MEDS: FERROUS SULFATE 325 MG TABLET PO SCH ×2 (09:29→20:56)
[2022-07-08] MEDS: INSULIN LISPRO 100 UNIT/ML SUBCUT SCH ×4 (09:29→20:57)
[2022-07-08] MEDS: GABAPENTIN 300 MG CAPSULE PO SCH ×3 (09:30→20:56)
[2022-07-08] MEDS: FLUTICASONE 50 MCG NASAL SPRAY 16 GM BOTTLE BOTH NARES SCH ×2 (09:30→20:57)
[2022-07-08] MEDS: PANTOPRAZOLE 40 MG TABLET PO SCH (09:30)
[2022-07-08] MEDS: POLYETHYLENE GLYCOL POWDER 17 GM PACK PO SCH (09:30)
[2022-07-08] MEDS: amLODIPine 10 MG TABLET PO SCH (20:56)
[2022-07-08] MEDS: INSULIN GLARGINE 100 UNIT/ML SUBCUT SCH (20:57)
[2022-07-08 22:49] LABS: HIV Antigen/Antibody Result Nonreactive (Nonreactive); Hepatitis B Surface Ag Quant < 0.10 Index; Hepatitis B Surface Ag Result Non-Reactive (NonReactive); Hepatitis C Virus Ab Quant 0.02 Index; Hepatitis C Virus Ab Result Non-Reactive (NonReactive)
[2022-07-09] MEDS: FERROUS SULFATE 325 MG TABLET PO SCH ×2 (08:42→21:01)
[2022-07-09] MEDS: PANTOPRAZOLE 40 MG TABLET PO SCH (08:42)
[2022-07-09] MEDS: INSULIN LISPRO 100 UNIT/ML SUBCUT SCH ×4 (08:42→21:03)
[2022-07-09] MEDS: GABAPENTIN 300 MG CAPSULE PO SCH ×3 (08:42→21:02)
[2022-07-09] MEDS: POLYETHYLENE GLYCOL POWDER 17 GM PACK PO SCH (08:42)
[2022-07-09] MEDS: FLUTICASONE 50 MCG NASAL SPRAY 16 GM BOTTLE BOTH NARES SCH ×2 (08:43→21:03)
[2022-07-09] MEDS: amLODIPine 10 MG TABLET PO SCH (21:02)
[2022-07-09] MEDS: INSULIN GLARGINE 100 UNIT/ML SUBCUT SCH (21:03)
[2022-07-10 05:01] LABS: Basophils % 0.4 % (0.0-0.8); Eosinophils # 0.3 10*3/uL (0.0-0.87); Eosinophils % 3.4 % (0.00-10.9); Hemoglobin 8.1 GM/DL (12.0-16.0); Immature Granulocytes % 0.6 %; Immature Granulocytes Absolute 0.06 #; Lymphocytes # 2.4 10*3/uL (1.4-4.0); Lymphocytes % 23.7 % (21.3-54.2); Mean Corpuscular HGB Conc 28.9 GM/DL (32-36); Mean Corpuscular Volume 95.9 FL (87-102); Mean Platelet Volume 10.1 FL (9.6-12.0); Monocytes # 0.7 10*3/uL (0.11-0.8); Neutrophils % 64.9 % (38.7-73.9); Platelet Count 292 T/CUMM (130-400); Red Blood Count 2.92 MC/CUMM (3.8-5.5); Red Cell Distribution Width 13.3 % (9.3-17.3)
[2022-07-10 05:17] LABS: Calcium 9.2 MG/DL (8.5-10.1); Potassium 5.1 MMOL/L (3.5-5.1)
[2022-07-10] MEDS: INSULIN LISPRO 100 UNIT/ML SUBCUT SCH ×4 (08:17→21:14)
[2022-07-10] MEDS: FERROUS SULFATE 325 MG TABLET PO SCH ×2 (08:18→21:14)
[2022-07-10] MEDS: GABAPENTIN 300 MG CAPSULE PO SCH ×3 (08:18→21:15)
[2022-07-10] MEDS: PANTOPRAZOLE 40 MG TABLET PO SCH (08:18)
[2022-07-10] MEDS: POLYETHYLENE GLYCOL POWDER 17 GM PACK PO SCH (08:18)
[2022-07-10] MEDS: FLUTICASONE 50 MCG NASAL SPRAY 16 GM BOTTLE BOTH NARES SCH ×2 (08:18→21:14)
[2022-07-10] MEDS: amLODIPine 10 MG TABLET PO SCH (21:15)
[2022-07-10] MEDS: INSULIN GLARGINE 100 UNIT/ML SUBCUT SCH (21:15)
[2022-07-11 05:38] LABS: Basophils % 0.3 % (0.0-0.8); Eosinophils # 0.3 10*3/uL (0.0-0.87); Hematocrit 27.6 VOL% (35.7-47.0); Hemoglobin 8.1 GM/DL (12.0-16.0); Immature Granulocytes % 0.7 %; Immature Granulocytes Absolute 0.07 #; Lymphocytes # 2.4 10*3/uL (1.4-4.0); Lymphocytes % 24.1 % (21.3-54.2); Mean Corpuscular HGB Conc 29.3 GM/DL (32-36); Mean Corpuscular Volume 95.5 FL (87-102); Mean Platelet Volume 10.3 FL (9.6-12.0); Monocytes # 0.7 10*3/uL (0.11-0.8); Monocytes % 7.5 % (1.7-12.7); Neutrophils % 64.4 % (38.7-73.9); Platelet Count 269 T/CUMM (130-400); Red Blood Count 2.89 MC/CUMM (3.8-5.5); Red Cell Distribution Width 13.3 % (9.3-17.3); White Blood Count 9.8 T/CUMM (4-12)
[2022-07-11 05:48] LABS: Calcium 8.9 MG/DL (8.5-10.1); Osmolality,Calculated 288.8 MOS/KG (273-304); Potassium 4.8 MMOL/L (3.5-5.1)
[2022-07-11] MEDS: PANTOPRAZOLE 40 MG TABLET PO SCH (09:03)
[2022-07-11] MEDS: INSULIN LISPRO 100 UNIT/ML SUBCUT SCH ×2 (09:03→13:26)
[2022-07-11] MEDS: POLYETHYLENE GLYCOL POWDER 17 GM PACK PO SCH (09:03)
[2022-07-11] MEDS: FERROUS SULFATE 325 MG TABLET PO SCH (09:03)
[2022-07-11] MEDS: GABAPENTIN 300 MG CAPSULE PO SCH (09:03)
[2022-07-11] MEDS: FLUTICASONE 50 MCG NASAL SPRAY 16 GM BOTTLE BOTH NARES SCH (11:05)
[2022-07-11 13:28] VITALS: BP 177/83
== END 2022-07-11 15:43 | disposition home or self-care (01) | DRG 194 ==
LOC: SUATTDRO 14:23 → N.5E 14:23 → N.2E 07-10 10:04
PROVIDERS: ADMIT Internal Medicine; ATTEND Hospitalist